=== PATIENT | male | born 1945 | race Caucasian/White ===

== ENCOUNTER → 2024-01-01 11:47 | Outpatient (REF) | payer MEDICARE, BC, SELFPAY ==
[2024-01-01 16:00] LABS: % Basophils 0.8 % (0-2); % Immature Granulocytes 0.3 % (0-0.5); % Lymphocytes 36.3 % (20.5-51.1); % Monocytes 8.1 % (1.7-9.3); % Neutrophils 50.5 % (42.2-75.2); Absolute Basophils 0.1 10^3/uL (0-0.2); Absolute Eosinophils 0.3 10^3/uL (0-0.7); Absolute Lymphocytes 2.3 10^3/uL (1.2-3.4); Absolute Monocytes 0.5 10^3/uL (0.1-0.6); Absolute Neutrophils 3.2 10^3/uL (1.4-6.5); Hematocrit 42.9 % (39.0-52.0); Hemoglobin 14.3 g/dL (13.0-18.0); Mean Corp Hgb Conc. 33.3 g/dL (33.0-37.0); Mean Corpuscular Hgb 28.9 pg (27.0-31.0); Mean Corpuscular Volume 86.7 fL (80.0-94.0); Mean Platelet Volume 9.5 fL (7.4-10.4); Nucleated Red Blood Cells % 0 % (-); Platelet Count 266 10^3/uL (130-400); Red Blood Cell Count 4.95 10^6/uL (4.70-6.10); White Blood Cell Count 6.3 10^3/uL (4.8-10.8)
[2024-01-01 16:11] LABS: ALT (SGPT) 38 U/L (0-50); AST (SGOT) 37 U/L (17-59); Albumin 4.3 g/dl (3.5-5.0); Alkaline Phosphatase 68 U/L (38-126); Blood Urea Nitrogen 18 mg/dl (9-20); Calcium 9.8 mg/dl (8.4-10.2); Carbon Dioxide 26 mmol/L (22-30); Chloride 109 mmol/L (98-107); Glucose 105 mg/dl (70-99); Potassium 4.4 mmol/L (3.5-5.1); Sodium 138 mmol/L (135-145); Total Bilirubin 0.7 mg/dl (0.2-1.3); Total Protein 6.9 g/dl (6.3-8.2); eGFR > 60.00
== END ==
LOC: HWLAB 11:47
PROVIDERS: ATTENDING PHYSICIAN Internal Medicine
DX: I65.23 Occlusion and stenosis of bilateral carotid arteries (principal); E78.2 Mixed hyperlipidemia; D68.51 Activated protein C resistance; E66.9 Obesity, unspecified; R41.3 Other amnesia; Z86.711 Personal history of pulmonary embolism
CPT/HCPCS: 36415; 80053; 85025

== ENCOUNTER → 2024-01-03 10:43 | Outpatient (REF) | payer MEDICARE, BC, SELFPAY | LOC: RAD 10:43 | PROVIDERS: ATTENDING PHYSICIAN Internal Medicine Cardiovascular Disease; FAMILY PHYSICIAN Internal Medicine | DX: I65.23 Occlusion and stenosis of bilateral carotid arteries (principal) | CPT/HCPCS: 93880 ==

== ENCOUNTER 2024-05-20 16:22 | Emergency (ER) | payer MEDICARE, BC, SELFPAY ==
[2024-05-20 16:27] VITALS: BMI 31.7
[2024-05-20 16:28] VITALS: BP 115/53
[2024-05-20 17:05] VITALS: BP 113/45
[2024-05-20 18:00] VITALS: BP 117/48
[2024-05-20] MEDS: NSS 1000 IV (18:55)
--- NOTE | 2024-05-20 18:55 | ED.GENMED ---
History of Present Illness
<Nixon Andre MD, Resident - Last Filed: 05/20/24 21:49>
General
Chief Complaint: Fall
Source: patient and spouse
Time Seen by Provider: 05/20/24 17:28
History of Present Illness
History of Present Illness:
78-year-old male, Mr. Valeriy Katz with past medical history significant for hypertension, hyperlipidemia, CAD/CABG, factor V Leiden on Eliquis presented to the ER with history of 2 falls in the last week. Patient reports that he tested positive
for COVID yesterday. Patient reports having runny nose and congestion for 1 week, cough and fevers since 2 days. His recorded a temperature of 102 yesterday. Patient also reports episodes of dizziness/lightheadedness with positional changes
and this has been ongoing since few months. Patient reported he had 1 episode of dizziness in the morning today. Patient's mentioned that he has ongoing balance issues from the past 1 year, for which he is seeing a physical therapist as
recommended by his primary care physician. No history of loss of consciousness, vision changes, headaches, nausea/vomiting, chest pain, palpitations, SOB, abdominal pain, bladder/bowel disturbances. No history of weakness, numbness, tingling.
Patient reports he is on Eliquis, anticoagulation for factor Leiden mutation coagulopathy. Patient has a history of bilateral carotid artery stenosis.
Past History
<Nixon Andre MD, Resident - Last Filed: 05/20/24 21:49>
Past History
ED Past Medical History: HTN, Hypercholesterolemia and Other (Obstructive sleep apnea)
ED Past Surgical History: Orthopedic
Social History
Tobacco: Non-smoker
Alcohol: Occasional
Drug: None
Personal:
Living: with family
Employment: Employed ([employer])
Family History
Family History: Hypertension
Phy Exam
<Nixon Andre MD, Resident - Last Filed: 05/20/24 21:49>
Physical Exam
Physical Exam:
GEN: Well appearing, NAD, WDWN
Eyes: PERRLA, EOMs intact, conjunctival congestion
HENT: NCAT, oral mucosa moist, no JVD, no cervical adenopathy, congestion in the nose, PND+
Lungs: CTAB, no wheezes, rales, rhonchi, normal chest wall excursion
Cardiac: RRR, murmur+, no peripheral edema. Radial pulses 2+ bilat
Abdomen: S, NT, ND, NABS, no masses or hepatosplenomegaly
Neuro: AO x 3, no focal deficits to BUE/BLE, normal sensation throughout
Skin: No rashes, petechiae. Normal color, no pallor or jaundice.
Psych: Calm, cooperative, proper hygiene
Course
<[facility] Andre MD, Resident - Last Filed: 05/20/24 21:49>
Orders/Labs/Results
Orders:
Orders
05/20/24 18:46
CT Head W/o Iv Contrast Urgent
Comment:
Reason For Exam: fall
0.9% Sodium Chloride 1000 ml [Nss] 1,000 ml IV BOLUS
05/20/24 18:52
COVID-19 Antigen Urgent
Source: Nasal Swab
Complete Blood Count/With Diff Urgent
Comprehensive Metabolic Panel Urgent
Abnormal Lab Results
05/20/24
18:52
RBC 4.19 L 10^6/uL
(4.70-6.10)
Hgb 12.1 L g/dL
(13.0-18.0)
Hct 36.2 L %
(39.0-52.0)
Absolute Monos (auto) 1.2 H 10^3/uL
(0.1-0.6)
Lymphocytes % 13.4 L %
(20.5-51.1)
Monocytes % 13.0 H %
(1.7-9.3)
BUN 24 H mg/dl
(9-20)
Glucose 119 H mg/dl
(70-99)
Total Protein 5.9 L g/dl
(6.3-8.2)
SARS-CoV-2 Antigen Positive A
(Negative)
05/20/24 18:52
05/20/24 18:52
Vital Signs
Initial and Last Documented VS:
Initial Vital Signs
Pulse Ox
97
05/20/24 16:26
Last Documented Vital Signs
Temp Pulse Resp BP Pulse Ox
99.2 F 58 24 109/59 97
05/20/24 16:28 05/20/24 20:30 05/20/24 20:30 05/20/24 19:00 05/20/24 20:30
Cinthialt;Jesu Saenz, DO - Last Filed: 05/20/24 22:37>
Orders/Labs/Results
Orders:
Orders
05/20/24 18:46
CT Head W/o Iv Contrast Urgent
Comment:
Reason For Exam: fall
0.9% Sodium Chloride 1000 ml [Nss] 1,000 ml IV BOLUS
05/20/24 18:52
COVID-19 Antigen Urgent
Source: Nasal Swab
Complete Blood Count/With Diff Urgent
Comprehensive Metabolic Panel Urgent
Abnormal Lab Results
05/20/24
18:52
RBC 4.19 L 10^6/uL
(4.70-6.10)
Hgb 12.1 L g/dL
(13.0-18.0)
Hct 36.2 L %
(39.0-52.0)
Absolute Monos (auto) 1.2 H 10^3/uL
(0.1-0.6)
Lymphocytes % 13.4 L %
(20.5-51.1)
Monocytes % 13.0 H %
(1.7-9.3)
BUN 24 H mg/dl
(9-20)
Glucose 119 H mg/dl
(70-99)
Total Protein 5.9 L g/dl
(6.3-8.2)
SARS-CoV-2 Antigen Positive A
(Negative)
05/20/24 18:52
05/20/24 18:52
Vital Signs
Initial and Last Documented VS:
Initial Vital Signs
Pulse Ox
97
05/20/24 16:26
Last Documented Vital Signs
Temp Pulse Resp BP Pulse Ox
99.2 F 58 24 109/59 97
05/20/24 16:28 05/20/24 20:30 05/20/24 20:30 05/20/24 19:00 05/20/24 20:30
<Nixon Andre MD, Resident - Last Filed: 05/20/24 21:49>
MDM/Problems Addressed
Differential Diagnosis Includes:
COVID
Orthostatic hypotension versus hemorrhagic stroke, due to bleeding risk from being on anticoagulants and history of fall.
MDM/Problems Addressed:
Patient is afebrile on presentation. Saturating at 97% room air.
Patient was started on IV fluids.
CBC, CMP unremarkable except for mild elevation in BUN at 24, glucose at 119.
CT head without contrast-no evidence of acute intracranial bleed/infarct.
Patient is clinically stable to be discharged home.
<Nixon Andre MD, Resident - Last Filed: 05/20/24 21:49>
*Critical Care Note
Total Time (30-74mins, 75-104mins- exclusive of procedures): Not Applicable
ED Attending Note
<Nixon Andre MD, Resident - Last Filed: 05/20/24 21:49>
-
Portions of this chart may have been created with voice recognition software.� Occasional wrong word or��sound alike� substitutions may have occurred due to the inherent limitations of voice recognition software.
<Jesu CailinJaycee Saenz DO - Last Filed: 05/20/24 22:37>
ED Attending Note
Patient seen and examined by attending physician: Yes
I performed a history and physical exam of patient and discussed management with resident, I reviewed resident's note and agree with documented findings and plan of care.: Yes
ED Attending Note:
I agree with Dr. Andre's note.
Patient had 2 falls at home. Patient has a history of short-term memory loss and some balance issues. The patient's been resistant to seeing a neurologist for the symptoms but they have recently made an appointment. He recently developed cough,
sore throat and malaise. This has made it easier for him to fall. When the patient fell today he was not using his walker. He has no significant injuries from the fall. He is not short of breath.
General: Awake, Alert, Oriented X3. No acute distress.
Vitals: unremarkable
Head: Atraumatic
Eyes: Pupils equal, EOMI
Throat: Airway intact, no exudates
Neck: Trachea midline
Lungs: Clear and equal b/l
Heart: Regular rate, no murmurs
Abd: Soft, Nontender, No pulsatile mass
Neuro: No focal deficits
Skin: Warm, dry, no rash
Extremities: pulses equal b/l, no edema
Patient is not hypoxic. He is at his baseline mental status. Patient has outpatient neurologic follow-up. Neither he nor his desire him to be admitted. There is no unstable process which would benefit from hospitalization. Therefore we
will discharge the patient for outpatient follow-up.
Discharge Plan
Departure
Patient Disposition: Home (Routine Discharge)
Date of Disposition: 05/20/24
Time of Disposition: 21:37
Patient with high blood pressure during this ER visit?: No
Condition: Good
Discharge Problem:
COVID, Dizziness
Instructions: Dizziness, Adult ED, COVID-19 in adults - Discharge instructions
Prescriptions:
No Action
escitalopram oxalate 10 MG tablet
10 mg PO DAILY
fexofenadine [Sana] 180 MG tablet
180 mg PO DAILY
metoprolol succinate 25 MG tablet extended release 24 hr
25 mg PO DAILY
rosuvastatin 10 MG tablet
10 mg PO QPM
mupirocin 1 GRAM ointment
1 applic intranasal BID
sennosides [senna] 1 TABLET tablet
2 tab PO BID 0RF
acetaminophen 325 MG tablet
650 mg PO Q4HWA 0RF
magnesium hydroxide 30 ML suspension
30 ml PO DAILYPRN PRN (Reason: constipation) 0RF
docusate sodium 100 MG capsule
100 mg PO BID 0RF
loratadine 10 MG tablet
10 mg PO DAILY 0RF
enoxaparin 40 MG/0.4 ML syringe
40 mg SC QPM 0RF
Rx Instructions:
last dose 08/03 pm-then d/c
apixaban [Eliquis] 5 MG tablet
5 mg PO BID Qty: 1 0RF
Rx Instructions:
START ON 08/04--LAST DOSE 09/02 PM
oxycodone 5 MG tablet
5 mg PO Q4HPRN PRN (Reason: moderate-severe pain) Qty: 30 0RF
Rx Instructions:
1 tab moderate pain or 2 if pain severe
Dx total joint replacement
ongoing therapy
lisinopril 5 MG tablet
5 mg PO DAILY Qty: 0 0RF
Rx Instructions:
hold systolic blood pressure <130
apixaban [Eliquis] 2.5 MG tablet
2.5 mg PO BID Qty: 0 0RF
Rx Instructions:
RESUME THIS DOSE ON 09/03
Referrals:
UNKNOWN - PT DOES,NOT KNOW [Unknown Provider] -
Activity Restrictions/Additional Instructions:
Please follow-up with your primary care physician and neurologist within a week.
Interventions
Interventions:
*Risk Screen - Suicide Last Done: 05/20/24 16:30
*General Assessment Last Done: 05/20/24 16:30
*Neglect/Abuse Screening Last Done: 05/20/24 16:30
ED- Fall Risk Assessment Last Done: 05/20/24 22:02
*ED COVID-19 Vaccine History Last Done: 05/20/24 16:30
*Nursing Disposition Last Done: 05/20/24 22:02
ED-Musculoskeletal Assessment Last Done: 05/20/24 16:31
ED- Neurological Assessment Last Done: 05/20/24 16:30
ED-Skin Assessment Last Done: 05/20/24 16:31
Discharge Date and Time
Discharge Date/Time: 05/20/24 22:02
Print Language: SWISS
[2024-05-20 19:00] VITALS: BP 109/59
[2024-05-20 19:10] LABS: % Basophils 0.3 % (0-2); % Eosinophils 0.1 % (0-6); % Immature Granulocytes 0.4 % (0-0.5); % Lymphocytes 13.4 % (20.5-51.1); % Neutrophils 72.8 % (42.2-75.2); Absolute Lymphocytes 1.2 10^3/uL (1.2-3.4); Absolute Monocytes 1.2 10^3/uL (0.1-0.6); Absolute Neutrophils 6.5 10^3/uL (1.4-6.5); Hematocrit 36.2 % (39.0-52.0); Hemoglobin 12.1 g/dL (13.0-18.0); Mean Corp Hgb Conc. 33.4 g/dL (33.0-37.0); Mean Corpuscular Hgb 28.9 pg (27.0-31.0); Mean Corpuscular Volume 86.4 fL (80.0-94.0); Mean Platelet Volume 9.3 fL (7.4-10.4); Nucleated Red Blood Cells % 0 % (-); Platelet Count 185 10^3/uL (130-400); Red Blood Cell Count 4.19 10^6/uL (4.70-6.10); Red Cell Dist. Width 13.6 % (11.5-14.5)
[2024-05-20 19:18] LABS: COVID-19 Antigen Positive (Negative)
[2024-05-20 19:26] LABS: ALT (SGPT) 27 U/L (0-50); AST (SGOT) 24 U/L (17-59); Albumin 3.6 g/dl (3.5-5.0); Alkaline Phosphatase 58 U/L (38-126); Blood Urea Nitrogen 24 mg/dl (9-20); Calcium 9.4 mg/dl (8.4-10.2); Carbon Dioxide 24 mmol/L (22-30); Chloride 107 mmol/L (98-107); Estimated Creatinine Clearance 75 ml/min; Glucose 119 mg/dl (70-99); Potassium 4.2 mmol/L (3.5-5.1); Sodium 138 mmol/L (135-145); Total Bilirubin 0.4 mg/dl (0.2-1.3); Total Protein 5.9 g/dl (6.3-8.2); eGFR > 60.00
== END 2024-05-20 22:02 | disposition home or self-care (01) ==
LOC: EMR 16:22
PROVIDERS: Student in an Organized Health Care Education/Training Program; EMERGENCY PHYSICIAN Emergency Medicine; FAMILY PHYSICIAN Internal Medicine
DX: U07.1 COVID-19 (principal); R42 Dizziness and giddiness; W19.XXXA Unspecified fall, initial encounter; Z11.52 Encounter for screening for COVID-19; I10 Essential (primary) hypertension; G47.33 Obstructive sleep apnea (adult) (pediatric); E78.00 Pure hypercholesterolemia, unspecified; D68.51 Activated protein C resistance; Z79.01 Long term (current) use of anticoagulants; Z95.1 Presence of aortocoronary bypass graft; R29.6 Repeated falls; Z88.1 Allergy status to other antibiotic agents
CPT/HCPCS: 99284; 96360; 70450; 80053; 85025; 87811

== ENCOUNTER → 2024-06-21 12:00 | Outpatient (REF) | payer MEDICARE, BC, SELFPAY ==
[2024-06-21 16:00] LABS: % Basophils 0.7 % (0-2); % Eosinophils 4.3 % (0-6); % Immature Granulocytes 0.4 % (0-0.5); % Lymphocytes 35.7 % (20.5-51.1); % Monocytes 8.5 % (1.7-9.3); % Neutrophils 50.4 % (42.2-75.2); Absolute Basophils 0.1 10^3/uL (0-0.2); Absolute Eosinophils 0.3 10^3/uL (0-0.7); Absolute Lymphocytes 2.7 10^3/uL (1.2-3.4); Absolute Monocytes 0.6 10^3/uL (0.1-0.6); Absolute Neutrophils 3.7 10^3/uL (1.4-6.5); Hematocrit 43.9 % (39.0-52.0); Hemoglobin 14.3 g/dL (13.0-18.0); Mean Corp Hgb Conc. 32.6 g/dL (33.0-37.0); Mean Corpuscular Hgb 28.7 pg (27.0-31.0); Mean Platelet Volume 9.3 fL (7.4-10.4); Nucleated Red Blood Cells % 0 % (-); Platelet Count 240 10^3/uL (130-400); Red Blood Cell Count 4.99 10^6/uL (4.70-6.10); Red Cell Dist. Width 13.3 % (11.5-14.5); White Blood Cell Count 7.4 10^3/uL (4.8-10.8)
[2024-06-21 16:13] LABS: ALT (SGPT) 24 U/L (0-50); AST (SGOT) 24 U/L (17-59); Albumin 4.1 g/dl (3.5-5.0); Alkaline Phosphatase 68 U/L (38-126); Blood Urea Nitrogen 18 mg/dl (9-20); Calcium 9.9 mg/dl (8.4-10.2); Carbon Dioxide 24 mmol/L (22-30); Chloride 106 mmol/L (98-107); Glucose 105 mg/dl (70-99); Potassium 4.6 mmol/L (3.5-5.1); Sodium 142 mmol/L (135-145); Total Bilirubin 0.6 mg/dl (0.2-1.3); Total Protein 6.8 g/dl (6.3-8.2); eGFR > 60.00
== END ==
LOC: HWLAB 12:00
PROVIDERS: ATTENDING PHYSICIAN Internal Medicine
DX: I65.23 Occlusion and stenosis of bilateral carotid arteries (principal); E78.2 Mixed hyperlipidemia; D68.51 Activated protein C resistance; E66.9 Obesity, unspecified; R41.3 Other amnesia; Z86.711 Personal history of pulmonary embolism
CPT/HCPCS: 36415; 80053; 85025

== ENCOUNTER → 2024-06-28 12:15 | Outpatient (REF) | payer MEDICARE, BC, SELFPAY | LOC: HWRAD 12:15 | PROVIDERS: ATTENDING PHYSICIAN Internal Medicine | DX: M25.431 Effusion, right wrist (principal) | CPT/HCPCS: 73100; 73130 ==

== ENCOUNTER → 2024-07-09 13:44 | Outpatient (REF) | payer MEDICARE, BC, SELFPAY | LOC: EMG 13:44 | PROVIDERS: ATTENDING PHYSICIAN Orthopaedic Surgery Hand Surgery; FAMILY PHYSICIAN Internal Medicine | DX: S62.124A Nondisplaced fracture of lunate [semilunar], right wrist, initial encounter for closed fracture (principal); G56.03 Carpal tunnel syndrome, bilateral upper limbs | CPT/HCPCS: 95886; 95911 ==

== ENCOUNTER → 2024-09-23 12:11 | Outpatient (REF) | payer MEDICARE, BC, SELFPAY ==
[2024-09-23 14:23] LABS: HIV Combo Negative (Negative)
[2024-09-23 14:48] LABS: Folate 14.2 ng/ml (2.76-20); Vitamin B12 386 pg/ml (239-931)
[2024-09-24 15:43] LABS: Syphilis/T. pallidum Ab Reflex Negative (Negative)
== END ==
LOC: REG 12:11
PROVIDERS: ATTENDING PHYSICIAN Psychiatry & Neurology Neurology; FAMILY PHYSICIAN Internal Medicine
DX: R41.3 Other amnesia (principal)
CPT/HCPCS: 36415; 82607; 82746; 84425; 84443; 86618; 86780; 87389

== ENCOUNTER → 2024-10-28 15:16 | Outpatient (REF) | payer MEDICARE, BC, SELFPAY | LOC: MRI 3T 15:16 | PROVIDERS: ATTENDING PHYSICIAN Psychiatry & Neurology Neurology; FAMILY PHYSICIAN Internal Medicine | DX: R41.3 Other amnesia (principal) | CPT/HCPCS: 70551 ==

== ENCOUNTER → 2024-12-20 10:40 | Outpatient (REF) | payer MEDICARE, BC, SELFPAY ==
[2024-12-20 11:42] LABS: % Basophils 0.8 % (0-2); % Immature Granulocytes 0.5 % (0-0.5); % Lymphocytes 34.8 % (20.5-51.1); % Monocytes 9.5 % (1.7-9.3); % Neutrophils 50.4 % (42.2-75.2); Absolute Basophils 0.1 10^3/uL (0-0.2); Absolute Eosinophils 0.3 10^3/uL (0-0.7); Absolute Lymphocytes 2.2 10^3/uL (1.2-3.4); Absolute Monocytes 0.6 10^3/uL (0.1-0.6); Absolute Neutrophils 3.1 10^3/uL (1.4-6.5); Hematocrit 43.7 % (39.0-52.0); Hemoglobin 14.4 g/dL (13.0-18.0); Mean Corpuscular Hgb 28.7 pg (27.0-31.0); Mean Corpuscular Volume 87.1 fL (80.0-94.0); Mean Platelet Volume 9.4 fL (7.4-10.4); Nucleated Red Blood Cells % 0 % (-); Platelet Count 248 10^3/uL (130-400); Red Blood Cell Count 5.02 10^6/uL (4.70-6.10); Red Cell Dist. Width 13.2 % (11.5-14.5); White Blood Cell Count 6.2 10^3/uL (4.8-10.8)
[2024-12-20 12:16] LABS: ALT (SGPT) 36 U/L (0-50); AST (SGOT) 29 U/L (17-59); Albumin 4.5 g/dl (3.5-5.0); Alkaline Phosphatase 69 U/L (38-126); Blood Urea Nitrogen 15 mg/dl (9-20); Carbon Dioxide 26 mmol/L (22-30); Chloride 107 mmol/L (98-107); Glucose 105 mg/dl (70-99); HDL Cholesterol 40 mg/dl; LDL Cholesterol, Calculated 48 mg/dl; Potassium 4.5 mmol/L (3.5-5.1); Sodium 142 mmol/L (135-145); Total Bilirubin 0.8 mg/dl (0.2-1.3); Total Cholesterol 114 mg/dl (50-199); Total Protein 6.7 g/dl (6.3-8.2); Triglyceride 133 mg/dl (10-149); Very Low Density Lipoprotein 26 mg/dl (0-30); eGFR > 60.00
[2024-12-20 12:42] LABS: TSH Reflex To Free T4 2.31 uIU/ml (0.47-4.68)
== END ==
LOC: REG 10:40
PROVIDERS: ATTENDING PHYSICIAN Internal Medicine
DX: Z00.00 Encounter for general adult medical examination without abnormal findings (principal); I65.23 Occlusion and stenosis of bilateral carotid arteries; E78.2 Mixed hyperlipidemia; D68.51 Activated protein C resistance; R41.3 Other amnesia; Z86.711 Personal history of pulmonary embolism; Z68.39 Body mass index [BMI] 39.0-39.9, adult; I10 Essential (primary) hypertension; N40.0 Benign prostatic hyperplasia without lower urinary tract symptoms; M25.431 Effusion, right wrist; R26.89 Other abnormalities of gait and mobility
CPT/HCPCS: 36415; 80053; 80061; 84443; 85025

== ENCOUNTER → 2025-01-08 13:44 | Outpatient (REF) | payer MEDICARE, BC, SELFPAY | LOC: RAD 13:44 | PROVIDERS: ATTENDING PHYSICIAN Internal Medicine Cardiovascular Disease; FAMILY PHYSICIAN Internal Medicine | DX: I65.23 Occlusion and stenosis of bilateral carotid arteries (principal) | CPT/HCPCS: 93880 ==